=== PATIENT | male | born 1945 | race Caucasian/White ===

== ENCOUNTER 2019-01-14 12:16 | Emergency (ER) | payer MEDICARE ==
[2019-01-14 13:49] LABS: ABS Basophils 0.1 10^3/ul (0-0.2); ABS Eosinophils 0.1 10^3/ul (0-0.6); ABS Monocytes 0.9 10^3/ul (0-0.8); ABS Neutrophils 9.6 10^3/ul (1.5-7.7); Eosinophil % 0.6 %; Hematocrit 46 % (42-52); Hemoglobin 14.5 g/dL (14.0-18.0); Lymphocyte % 8.5 %; Mean Corpuscular HGB Conc 32 g/dL (31-36); Mean Corpuscular Hemoglobin 21 pg (27-31); Mean Corpuscular Volume 66 fL (80-94); Mean Platelet Volume 9.6 fL (7.4-10.4); Platelet Count 187 10^3/uL (150-450); Red Cell Distribution Width 17 % (10-15); White Blood Count 11.6 10^3/uL (3.5-10.8)
[2019-01-14 14:04] LABS: Albumin 4.7 g/dL (3.2-5.2); Albumin/Globulin Ratio 1.7 (1-3); BUN/Creatinine Ratio 15.4 (8-20); C Reactive Protein 20.12 mg/L (<8.01); Calcium 10.3 mg/dL (8.6-10.3); EGFR African American 70.2 (>60); Globulin 2.7 g/dL (2-4); Potassium 4.9 mmol/L (3.5-5.0); Total Bilirubin 1.6 mg/dL (0.2-1.0); Total Protein 7.4 g/dL (6.4-8.9)
[2019-01-14] MEDS ORDERED: NS 0.9% 1000 ML** 1,000 ML IV ONE (14:21)
--- NOTE | 2019-01-14 14:25 | ED ---
Abdominal Pain/Male - HPI Summary HPI Summary: The patient is a 73 y/o M presenting to [facility] with a chief complaint of gradual worsening intermittent right flank pain over the past week. He reports that he went to his PCP's office when the pain began, and she did not find any acute abnormalities at time. Before the pain began, he was experiencing increased urinary frequency, and now he has been experiencing nausea with some vomiting, decreased appetite, and constipation. He denies fever and dysuria. Currently, the aching pain is rated 4/10 in severity. No past medical hx of kidney stones, but there is FHx. Former smoker, no EtOH, no substance use. - History of Current Complaint Chief Complaint: EDAbdPain Stated Complaint: VOMITING Time Seen by Provider: 01/14/19 14:11 Hx Obtained From: Patient Onset/Duration: Gradual Onset, Lasting Days - one week, Still Present Timing: Lasting Days Severity Initially: Mild Severity Currently: Moderate Pain Intensity: 4 Pain Scale Used: 0-10 Numeric Location: Flank - right Radiates: No Character: Other: - aching Aggravating Factor(s): Nothing Alleviating Factor(s): Nothing Associated Signs And Symptoms: Positive: Constipation, Urinary Symptoms - increased frequency, no dysuria, Decreased Appetite, Nausea, Vomiting. Negative : Fever - Allergies/Home Medications Allergies/Adverse Reactions: Allergies Allergy/AdvReac Type Severity Reaction Status Date / Time morphine Allergy Itching Verified 01/14/19 12:22 PMH/Surg Hx/FS Hx/Imm Hx Endocrine/Hematology History: Denies: Hx Diabetes Cardiovascular History: Denies: Hx Hypercholesterolemia, Hx Hypertension History: Denies: Hx Kidney Stones Musculoskeletal History: Reports: Hx Arthritis - PATIENT REPORTS LEFT KNEE, Hx Tendonitis - PATIENT REPORTS INNER ASPECT LEFT ANKLE Sensory History: Denies: Hx Contacts or Glasses, Hx Hearing Aid Opthamlomology History: Denies: Hx Contacts or Glasses - Surgical History Surgery Procedure, Year, and Place: 1999-INGUINAL HERNIA REPAIR. 2007-LEFT KNEE ARTHROSCOPY. 2011-RIGHT KNEE REPLACEMENT Hx Anesthesia Reactions: No Infectious Disease History: No Infectious Disease History: Denies: Hx Clostridium Difficile, Hx Hepatitis, Hx Human Immunodeficiency Virus (HIV), Hx Shingles, Hx Tuberculosis, Traveled Outside the [place] in Last 30 Days - Family History Known Family History: Positive: Renal Disease - kidney stones - Social History Alcohol Use: None Hx Substance Use: No Substance Use Type: Reports: None Hx Tobacco Use: Yes Smoking Status (MU): Former Smoker Review of Systems Negative: Fever Positive: Abdominal Pain - right flank, Vomiting, Nausea, Other - decreased appetite, constipation Positive: frequency - increased urination. Negative: dysuria All Other Systems Reviewed And Are Negative: Yes Physical Exam - Summary Physical Exam Summary: VITAL SIGNS: Reviewed. GENERAL: Patient is a well-developed and nourished male who is lying comfortable in the stretcher. Patient is not in any acute respiratory distress. HEAD AND FACE: Normocephalic and atraumatic. EYES: PERRLA, EOMI x 2, No injected conjunctiva. EARS: Hearing grossly intact. Ear canals and tympanic membranes are WNL. MOUTH: Oropharynx within normal limits. NECK: Supple, trachea is midline, no adenopathy, no JVD. CHEST: Symmetric, no tenderness at palpation. LUNGS: Clear to auscultation bilaterally. No wheezing or crackles. CVS: RRR, S1 and S2 present, no murmurs or gallops appreciated. ABDOMEN: Soft, right costovertebral angle tenderness. No signs of distention. Positive bowel sounds. No rebound, no guarding, and no masses palpated. No abdominal bruit or pulsations. EXTREMITIES: FROM in all major joints, no edema, no cyanosis or clubbing. NEURO: Alert and oriented x 3. No acute neurological deficits. Speech is normal. SKIN: Dry and warm. Triage Information Reviewed: Yes Vital Signs On Initial Exam: Initial Vitals Temp Pulse Resp BP Pulse Ox 99.1 F 110 16 119/95 96 01/14/19 12:17 01/14/19 12:17 01/14/19 12:17 01/14/19 12:17 01/14/19 12:17 Vital Signs Reviewed: Yes Diagnostics - Vital Signs Vital Signs Temp Pulse Resp BP Pulse Ox 01/14/19 12:17 99.1 F 110 16 119/95 96 - Laboratory Lab Results: Lab Results 01/14/19 01/14/19 01/14/19 Range/Units 13:32 13:32 13:32 WBC 11.6 H (3.5-10.8) 10^3/uL RBC 6.90 H (4.18-5.48) 10^6 /uL Hgb 14.5 (14.0-18.0) g/dL Hct 46 (42-52) % MCV 66 L (80-94) fL MCH 21 L (27-31) pg MCHC 32 (31-36) g/dL RDW 17 H (10-15) % Plt Count 187 (150-450) 10^3/uL MPV 9.6 (7.4-10.4) fL Neut % (Auto) 82.4 % Lymph % (Auto) 8.5 % Darke % (Auto) 7.6 % Eos % (Auto) 0.6 % Baso % (Auto) 0.9 % Absolute Neuts (auto) 9.6 H (1.5-7.7) 10^3/ul Absolute Lymphs (auto) 1.0 (1.0-4.8) 10^3/ul Absolute Monos (auto) 0.9 H (0-0.8) 10^3/ul Absolute Eos (auto) 0.1 (0-0.6) 10^3/ul Absolute Basos (auto) 0.1 (0-0.2) 10^3/ul Absolute Nucleated RBC 0.0 10^3/ul Nucleated RBC % 0.0 Sodium 139 (135-145) mmol/L Potassium 4.9 (3.5-5.0) mmol/L Chloride 104 (101-111) mmol/L Carbon Dioxide 29 (22-32) mmol/L Anion Gap 6 (2-11) mmol/L BUN 19 (6-24) mg/dL Creatinine 1.23 H (0.67-1.17) mg/dL Est GFR ( Amer) 70.2 (>60) Est GFR (Non-Af Amer) 58.0 (>60) BUN/Creatinine Ratio 15.4 (8-20) Glucose 98 (70-100) mg/dL Lactic Acid 1.7 (0.5-2.0) mmol/L Calcium 10.3 (8.6-10.3) mg/dL Total Bilirubin 1.60 H (0.2-1.0) mg/dL AST 18 (13-39) U/L ALT 23 (7-52) U/L Alkaline Phosphatase 52 (34-104) U/L Troponin I 0.00 (<0.04) ng/mL C-Reactive Protein 20.12 H (<8.01) mg/L B-Natriuretic Peptide (<=100) pg/mL Total Protein 7.4 (6.4-8.9) g/dL Albumin 4.7 (3.2-5.2) g/dL Globulin 2.7 (2-4) g/dL Albumin/Globulin Ratio 1.7 (1-3) Amylase 49 (29-103) U/L Lipase 25 (11.0-82.0) U/L 01/14/19 Range/Units 13:32 WBC (3.5-10.8) 10^3/uL RBC (4.18-5.48) 10^6 /uL Hgb (14.0-18.0) g/dL Hct (42-52) % MCV (80-94) fL MCH (27-31) pg MCHC (31-36) g/dL RDW (10-15) % Plt Count (150-450) 10^3/uL MPV (7.4-10.4) fL Neut % (Auto) % Lymph % (Auto) % Darke % (Auto) % Eos % (Auto) % Baso % (Auto) % Absolute Neuts (auto) (1.5-7.7) 10^3/ul Absolute Lymphs (auto) (1.0-4.8) 10^3/ul Absolute Monos (auto) (0-0.8) 10^3/ul Absolute Eos (auto) (0-0.6) 10^3/ul Absolute Basos (auto) (0-0.2) 10^3/ul Absolute Nucleated RBC 10^3/ul Nucleated RBC % Sodium (135-145) mmol/L Potassium (3.5-5.0) mmol/L Chloride (101-111) mmol/L Carbon Dioxide (22-32) mmol/L Anion Gap (2-11) mmol/L BUN (6-24) mg/dL Creatinine (0.67-1.17) mg/dL Est GFR ( Amer) (>60) Est GFR (Non-Af Amer) (>60) BUN/Creatinine Ratio (8-20) Glucose (70-100) mg/dL Lactic Acid (0.5-2.0) mmol/L Calcium (8.6-10.3) mg/dL Total Bilirubin (0.2-1.0) mg/dL AST (13-39) U/L ALT (7-52) U/L Alkaline Phosphatase (34-104) U/L Troponin I (<0.04) ng/mL C-Reactive Protein (<8.01) mg/L B-Natriuretic Peptide 50 (<=100) pg/mL Total Protein (6.4-8.9) g/dL Albumin (3.2-5.2) g/dL Globulin (2-4) g/dL Albumin/Globulin Ratio (1-3) Amylase (29-103) U/L Lipase (11.0-82.0) U/L Result Diagrams: 01/14/19 13:32 01/14/19 13:32 Lab Statement: Any lab studies that have been ordered have been reviewed, and results considered in the medical decision making process. - CT Abd/Pel CT CT Interpretation Completed By: Radiologist Summary of CT Findings: 1. Mild RIGHT hydronephrosis is traced to a 0.6 cm maximum dimension distal RIGHT ureteral stone approximate 4 cm from the ureterovesicular junction. 2. Nonemergent RIGHT renal ultrasound suggested to further assess the 1.5 cm cortical lesion at the upper pole which may represent a hyperdense cyst or solid lesion. ED physician has reviewed this radiology report. - EKG 1355 Cardiac Rate: NL - 90 BPM EKG Rhythm: Sinus Rhythm Summary of EKG Findings: No ST elevations. Re-Evaluation - Re-Evaluation First Eval Re-Evaluation Time: 15:30 Change: Worse Comment: The patient states he would like medication for nausea and pain. I will order Zofran and Fentanyl Citrate. Second Eval Re-Evaluation Time: 16:30 Change: Improved Comment: I discussed all findings and discharge with the patient since the patient's symptoms have improved. Abdominal Pain Male Course/Dx - Course Assessment/Plan: The patient is a 73 y/o M presenting to [facility] with a chief complaint of gradual worsening intermittent right flank pain over the past week. He reports that he went to his PCP office when the pain began, and she did not find any acute abnormalities at time. Before the pain began, he was experiencing increased urinary frequency, and now he has been experiencing nausea with some vomiting, decreased appetite, and constipation. He denies fever and dysuria. Currently, the aching pain is rated 4/10 in severity. No past medical hx of kidney stones, but there is FHx. Former smoker, no EtOH, no substance use. In the ED course, the patient was placed on a potline monitor, IV access was obtained, and IV fluids were started. Blood work without any significant abnormality except for WBCs of 11.6, RBCs of 6.9, creatinine of 1.23 , total bili of 1.6, and CRP of 20.1. Urinalysis negative for UTI. EKG shows normal sinus rhythm. Abdominal and pelvic CT Impression: 1. Mild RIGHT hydronephrosis is traced to a 0.6 cm maximum dimension distal RIGHT ureteral stone approximate 4 cm from the ureterovesicular junction. 2. Non Emergency RIGHT renal ultrasound suggested to further assess the 1.5 cm cortical lesion at the upper pole which may represent a hyperdense cyst or solid lesion. In the ED course, the patient was given IV fluids, Zofran for nausea, and Fentanyl for pain. I discussed all the findings and test results with the patient. Patient was instructed to return to the emergency room immediately if any of the symptoms return or worsen. Plan of care was discussed with the patient and understands and agrees. All questions were answered at patient satisfaction. There were no further complaints or concerns. Lung exam before discharge: CTA B/ L. Good air exchange. No wheezing or crackles heard. CVS: S1 and S2 present. No murmurs appreciated. Patient is alert and oriented x 3. Patient is hemodynamically stable. Patient will be discharged home with follow up PCP in the next 2-3 days. He will also follow up with urology in the next few days concerning dx. - Diagnoses Provider Diagnoses: Kidney stone, Ureterolithiasis Discharge - Sign-Out/Discharge Documenting (check all that apply): Patient Departure - Patient will be discharged home. Patient Received Moderate/Deep Sedation with Procedure: No - Discharge Plan Condition: Stable Disposition: HOME Prescriptions: Ondansetron ODT TAB* [Zofran 4 MG Odt TAB*] 4 mg PO Q8H PRN #10 tab.odt PRN Reason: Nausea oxyCODONE/Acetamin 5/325 MG* [Percocet 5/325 TAB*] 1 tab PO Q6H PRN #12 tab MDD 4 PRN Reason: Pain Patient Education Materials: Kidney Stones (ED) Referrals: Elen Castle MD [Primary Care Provider] - Vin Dee MD [Medical Doctor] - 2 Days Additional Instructions: Follow up with urology within the next 1-2 days. RETURN TO THE EMERGENCY DEPARTMENT FOR ANY NEW OR WORSENING SYMPTOMS. - Billing Disposition and Condition Condition: STABLE Disposition: Home - Attestation Statements Document Initiated by Scribe: Yes Documenting Scribe: Berta Contreras Provider For Whom Scribe is Documenting (Include Credential): Dr. Griffin Ledezma MD Scribe Attestation: Berta Rosales, scribed for Dr. Griffin Ledezma MD on 01/14/19 at 1838. Scribe Documentation Reviewed: Yes Provider Attestation: The documentation as recorded by the Berta forbes accurately reflects the service I personally performed and the decisions made by me, Dr. Griffin Ledezma MD Status of Scribe Document: Ready
[2019-01-14] MEDS ORDERED: Ondansetron INJ* 2 MG/ML VIAL IV ONE (15:32)
[2019-01-14] MEDS ORDERED: fentaNYL* 50 MCG/ML 2 ML VIAL (100 MCG VIAL) IV SLOW PU ONE (15:32)
[2019-01-14 16:49] LABS: Hepatitis C Antibody Negative (Negative)
[2019-01-14 16:55] LABS: Urine Appearance Clear; Urine Bilirubin Negative (Negative); Urine Blood Negative (Negative); Urine Color Yellow; Urine Glucose Negative (Negative); Urine Ketones 1+ (Negative); Urine Nitrite Negative (Negative); Urine Protein Negative (Negative); Urine Specific Gravity 1.015 (1.010-1.030); Urine Urobilinogen Negative (Negative)
[2019-01-14 18:25] VITALS: BP 113/86
== END 2019-01-14 18:24 | disposition home or self-care (01) ==
LOC: ED 12:16
DX: N13.2 Hydronephrosis with renal and ureteral calculous obstruction (principal); R11.2 Nausea with vomiting, unspecified; K59.00 Constipation, unspecified; Z88.5 Allergy status to narcotic agent; Z96.651 Presence of right artificial knee joint; Z87.891 Personal history of nicotine dependence
CPT/HCPCS: 36415; 74176; 80053; 81003; 82150; 83605; 83690; 83880; 84484; 85025; 86140; 86803; 93005; 96361; 96374; 96375; 99283; J2405; J3010

== ENCOUNTER → 2019-01-19 14:31 | Day surgery (SDC) | payer MEDICARE ==
[~2019-01-19 14:31] MED LIST: Buffered Lidocaine 1% SYRIN* 1 ML/SYRINGE INTRADERM ONE; Dexamethasone IV* 4 MG/ML 1 ML (4 MG) ONE; DiMENhydriNATE IV* 50 MG/ML VIAL IV PUSH PRN; Famotidine IV* 10 MG/ML 2 ML (20 mg) ONE; Iohexol 180 (CONTRAST) 10 ML SDV IV ONE; Ketorolac INJ* 30 MG/ML 1 ML VIAL ONE; Naloxone* 0.4 MG/ML 1 ML VIAL IV PRN; Ondansetron INJ* 2 MG/ML VIAL ONE; Phenylephrine 40 MCG/ML SYRINGE ONE; Tamsulosin CAP* 0.4 MG ONE; cefTRIAXone(*) 2 GM ADDV.VIAL IVPB ONE; fentaNYL* 50 MCG/ML 2 ML VIAL (100 MCG VIAL) ONE
--- NOTE | 2019-01-19 14:50 | HP ---
CC: Dr. Elen Castle * DATE OF ADMISSION: 01/19/2019. ADMITTING DIAGNOSES: 1. Calculus right ureter. 2. Right hydronephrosis. PLANNED PROCEDURE: Right ureteroscopy, possible laser and stent insertion. SURGEON: Dr. Charles Samaniego. HISTORY OF PRESENT ILLNESS: Eleno Coates is a 73-year-old gentleman who had been seen recently for right flank pain secondary to a calculus in the right distal ureter. He was managed conservatively, but continued to have significant flank pain and is now being brought in for right ureteroscopy, possible laser and stent insertion. PAST MEDICAL HISTORY: Significant for BPH for which he has not required any recent medication. PAST SURGICAL HISTORY: Significant for surgery for left inguinal hernia, right knee surgery, and surgery for deviated nasal septum. MEDICATIONS ON ADMISSION: Probiotics and Percocet prn. ALLERGIES: MORPHINE (itching). FAMILY HISTORY: Negative for stones. SMOKING HISTORY: He is a nonsmoker. REVIEW OF SYSTEMS: He is otherwise in excellent health. There is no history of diabetes mellitus or any other major systemic illness. PHYSICAL EXAMINATION GENERAL: Pleasant, elderly gentleman. VITAL SIGNS: Blood pressure 126/72, pulse 75 per minute regular, temperature 96.2, oxygen saturation 95 percent on room air. CARDIOVASCULAR: Regular rate and rhythm. S1, S2. LUNGS: Clear bilaterally. ABDOMEN: Soft with mild right flank tenderness. IMPRESSION: [id number]-old gentleman with a 6 mm calculus in the distal right ureter. PLAN: Planned procedure is right ureteroscopy, possible laser and stent insertion. [id number] #: [id number] [facility]
[2019-01-19] MEDS: fentaNYL* 50 MCG/ML 2 ML VIAL (100 MCG VIAL) IV PRN ×4 (17:45→18:00)
[2019-01-19 18:09] VITALS: BP 133/89
--- NOTE | 2019-01-19 23:08 | OP ---
CC: Dr. Castle * DATE OF OPERATION: 01/19/19 - SDS DATE OF : 49 SURGEON: Charles Samaniego MD. ANESTHESIOLOGIST: Dr. Emerson. ANESTHESIA: General. PRE-OP DIAGNOSIS: Calculus, right ureter. POST-OP DIAGNOSIS: Calculus, right ureter. OPERATIVE PROCEDURE: 1. Cystoscopy. 2. Right retrograde pyelogram. 3. Right ureteroscopy. 4. Stone extraction. 5. Right stent insertion. COMPLICATIONS: None. INDICATIONS: Eleno Coates is a 73-year-old gentleman who has had persistent right flank pain secondary to a calculus in the right distal ureter. OPERATIVE FINDINGS: 1. Moderately enlarged prostate. 2. Fairly narrow ureter with approximately 5-mm calculus in right distal ureter with fullness of the right collecting system. POSTOPERATIVE CONDITION: Stable. STENT USED: A 7-Tuvaluan stent, right ureter. DESCRIPTION OF PROCEDURE: After induction of general anesthesia, the patient was placed in dorsal lithotomy position, sequential compression devices were in place and functioning. Initial cystoscopy revealed a normal appearing urethra, a moderately enlarged obstructing prostate, especially the median lobe, and a normal appearing bladder. A guidewire was introduced into the right ureter. An open- ended catheter was advanced over the wire and the ureter was extremely narrow, barely fitting a 5-Tuvaluan open ended catheter. The distal part of the ureter carefully dilated to 8-Tuvaluan using a 8-Tuvaluan open ended catheter and then a 6- Tuvaluan semi-rigid ureteroscope was introduced. The ureteroscope was advanced under direct vision and about 4 or 5 cm above the ureterovesical junction, a 5-mm calculus was noted. Using a 3-pronged grasper, this was engaged and removed. No additional calculi were noted. Retrograde pyelogram had revealed fullness of the right collecting system and an appropriately positioned wire. A 7-Tuvaluan stent was introduced and positioned under fluoroscopy with good proximal and distal positioning obtained. A Joyner catheter was placed for temporary bladder drainage. The patient tolerated the procedure satisfactorily and was transferred back to the recovery area in stable condition. [id number] #: [id number] [facility]
== END | disposition home or self-care (01) ==
LOC: OR 14:31
PROVIDERS: ATTEND Urology
DX: N13.2 Hydronephrosis with renal and ureteral calculous obstruction (principal); N40.0 Benign prostatic hyperplasia without lower urinary tract symptoms
CPT/HCPCS: 74420; 82365; C1876; J0696; J1100; J1885; J2405; J3010